=== PATIENT | female | born 1955 | race Caucasian/White ===

== ENCOUNTER 2023-03-10 00:59 | Day surgery (SDC) | payer MEDICARE, OTHER, SELFPAY ==
[2023-02-16 15:42] VITALS: BMI 29.2
--- NOTE | 2023-03-08 10:22 | SUR.PREOP ---
Patient called regarding upcoming procedure. Left voicemail with procedure date and time and contact for questions.
[2023-03-10 12:39] VITALS: BP 113/75; PULSE 70; RESP 18; TEMP 36.4; O2SAT 97
[2023-03-10] MEDS: LACTATED RINGERS 1,000 ML 150 ML IV CONT (12:52)
--- NOTE | 2023-03-10 12:54 | WPDANESEPPF ---
Anes - Initial Pre Proc Eval Procedure: Operation Date: 03/10/23 13:30 Proposed Procedures p Colonoscopy - Dallin Anne MD Date/Time: 03/10/23 12:54 Surgeon: Dallin Anne MD Pre Op Diagnosis: other fecal abnormalities Patient Data Age: 67 Gender: F Height: 1.57 m Weight: 80.3 kg Last Vital Signs Temp 97.5 F L 03/10/23 12:39 Pulse 70 03/10/23 12:39 Resp 18 03/10/23 12:39 BP 113/75 03/10/23 12:39 Pulse Ox 97 03/10/23 12:39 O2 Del Method Room Air 03/10/23 12:39 Allergies Allergy/AdvReac Type Severity Reaction Status Date / Time codeine Allergy Severe NAUSEA Verified 03/10/23 12:34 Home Medications Medication Instructions Recorded Confirmed Type carvedilol 3.125 mg tablet 3.125 mg PO BID 02/16/23 02/16/23 History disopyramide phosphate 100 mg 100 mg PO DAILY 02/16/23 02/16/23 History capsule levalbuterol tartrate 45 2 inh inhalation PRN PRN Shortness 02/16/23 02/16/23 History mcg/actuation aerosol inhaler Of Breath montelukast 10 mg tablet 10 mg PO DAILY 02/16/23 02/16/23 History Patient hx anesthesia problems: none Family hx anesthesia problems: none Results Review: All pre-operative results and documents have been reviewed as part of the pre-operative evaluation. [facility] Social History Social History Smoking status: Never smoker Alcohol intake: current Drinks per week: 14 Alcohol use details: a couple drinks nightly Substance use: never Substance use type: does not use Living arrangements: alone Spiritual care concerns: No Anes - Eval Final PreProcedure Day of Procedure 03/10/23 12:54 Patient weight: obese Heart: regular rate and rhythm Lungs: clear to auscultation Airway: Mallampati scale class II Neurological: alert and oriented Last oral intake: >/= 8 hours ASA classification: III Emergent: no Anesthetic plan: proceed Anesthesia type and monitoring: general GIVS and standard monitoring Results Review: All pre-operative results and documents have been reviewed as part of the pre-operative evaluation. Informed Consent: The patient's anesthetic plan and its attendant risks and benefits were discussed with the patient/family/POA. Questions were solicited and answers provided to the satisfaction of the patient/family/POA.
--- NOTE | 2023-03-10 13:09 | P.HP_ITS ---
History of Present Illness History of Present Illness Consent: Risks, benefits, and alternatives have been discussed and questions answered. Patient agrees to proceed with procedure. Chief complaint: other fecal abnormalities Narrative: Christina Thompson is a 67 year old female Referred for colon cancer screening. She is a high risk because her father from colon cancer. Review of Systems Review of Systems: All systems reviewed & are unremarkable except as noted in HPI and below PMFSH Social History Social History Smoking status: Never smoker Alcohol intake: current Drinks per week: 14 Alcohol use details: a couple drinks nightly Substance use: never Substance use type: does not use Living arrangements: alone Spiritual care concerns: No Meds Home Medications and Allergies Home Medications Medication Instructions Recorded Confirmed Type carvedilol 3.125 mg tablet 3.125 mg PO BID 02/16/23 02/16/23 History disopyramide phosphate 100 mg 100 mg PO DAILY 02/16/23 02/16/23 History capsule levalbuterol tartrate 45 2 inh inhalation PRN PRN Shortness 02/16/23 02/16/23 History mcg/actuation aerosol inhaler Of Breath montelukast 10 mg tablet 10 mg PO DAILY 02/16/23 02/16/23 History Allergies Allergy/AdvReac Type Severity Reaction Status Date / Time codeine Allergy Severe NAUSEA Verified 03/10/23 12:34 Vital Signs Vital Signs - 24 hr 03/10/23 12:39 Temperature 36.4 C L Pulse Rate 70 Respiratory Rate 18 Blood Pressure 113/75 Pulse Oximetry 97 Oxygen Delivery Room Air Exam 2 Const: General: alert Orientation/consciousness: patient oriented x3 Resp: Auscultation: clear to auscultation bilaterally Cardio: Rhythm: regular rhythm GI: GI Palp: Yes Soft to palpation and No Tenderness to palpation present (GI) Neuro: General: patient oriented x3 Assessment and Plan Assessment and plan (1) Colon cancer screening: Code(s): Z12.11 - Encounter for screening for malignant neoplasm of colon Status: Acute Assessment and Plan: Colonoscopy with possible biopsy or polypectomy or cautery or injection of substances.
[2023-03-10 14:16] VITALS: BP 82/54; PULSE 71; RESP 22; O2SAT 95
[2023-03-10 14:26] VITALS: BP 83/63; PULSE 73; RESP 22; O2SAT 94
[2023-03-10 14:36] VITALS: BP 102/76; PULSE 75; RESP 22; O2SAT 96
--- NOTE | 2023-03-10 14:46 | SUR.PHASEII ---
Discharge delayed due to ride conflict.
== END 2023-03-10 14:55 | disposition home or self-care (01) ==
PROVIDERS: PCP Internal Medicine; Visit Provider Internal Medicine Gastroenterology
PROC: 0DJD8ZZ Inspection of Lower Intestinal Tract, Via Natural or Artificial Opening Endoscopic (ICD-10-PCS; CPT 45378; principal; 2023-03-10 13:30)
DX: Z12.11 Encounter for screening for malignant neoplasm of colon (principal); K63.5 Polyp of colon; D12.3 Benign neoplasm of transverse colon; K57.30 Diverticulosis of large intestine without perforation or abscess without bleeding; E66.9 Obesity, unspecified; Z68.32 Body mass index [BMI] 32.0-32.9, adult; Z80.0 Family history of malignant neoplasm of digestive organs
CPT/HCPCS: 45385; 45381; 88305; J2704; J7120